=== PATIENT | male | born 1990 | race Caucasian/White ===

== ENCOUNTER 2016-11-07 21:39 | Emergency (ER) | payer OTHER ==
[~2016-11-07] VITALS: Ht 170.2 cm; Wt 72.6 kg
[2016-11-07 21:40] VITALS: BP 131/84
[2016-11-07] MEDS ORDERED: KETOROLAC 30 MG/ML VIAL (J1885) As Ordered ONE (22:28)
[2016-11-07] MEDS ORDERED: METHOCARBAMOL 1,000 MG/10 ML VIAL (J2800) IM ONE (22:30)
[2016-11-07] MEDS: KETOROLAC 60 MG/2 ML VIAL (J1885) IM ONE (22:30)
--- NOTE | 2016-11-07 23:00 | REPUSA ---
CT of the lumbar spine without contrast Clinical history: Pain. Technique: Multiple axial CT images were obtained through the lumbar spine without administration of contrast. Coronal and sagittal 3-D reconstructed images were also obtained. Findings: The lumbar vertebral bodies are in satisfactory positioning and alignment. No fractures or dislocatio ns are demonstrated. Intervertebral disc spaces are well-maintained. There is no evidence of facet freitas bluxation. The neural foramen appear grossly patent. The spinal canal demonstrates normal caliber and contour without evidence of spinal stenosis. The surrounding soft tissues are within normal limits. Impression: Unremarkable CT examination of the lumbar spine.
[2016-11-07] MEDS ORDERED: KETOROLAC 30 MG/ML VIAL (J1885) IV ONE (23:15)
[2016-11-07] MEDS ORDERED: NAPR500T PO (23:34)
[2016-11-07] MEDS ORDERED: SKEL-29 PO (23:34)
== END 2016-11-07 23:45 | disposition home or self-care (01) ==
LOC: M ED 22:09
DX: M54.42 Lumbago with sciatica, left side (principal); Q07.00 Arnold-Chiari syndrome without spina bifida or hydrocephalus; F17.228 Nicotine dependence, chewing tobacco, with other nicotine-induced disorders
CPT/HCPCS: 72131; 96372; 96374; 99281; J1885; J2800

== ENCOUNTER → 2018-06-14 | Outpatient (REF) | payer OTHER | LOC: M SMT 13:23 | DX: Z30.2 Encounter for sterilization (principal) | CPT/HCPCS: 88302 ==

== ENCOUNTER → 2018-11-22 | Outpatient (REF) | payer OTHER, SELFPAY ==
[~2018-11-22] MED LIST: NAPR-837 PO; SKEL800T97 PO
[2018-11-22 13:55] LABS: SEMEN APPEARANCE OPAQUE (OPAQUE); SEMEN VISCOSITY LIQUID (LIQUID); SEMEN VOLUME 1.4 ml (4.0-5.0); SEMEN pH 8.5 (7.0-8.0)
[2018-11-22 13:56] LABS: WBC CONCENTRATION <=1 M/ml (<=1 M/ml)
== END ==
LOC: M SMT 12:51
PROVIDERS: ATTEND Urology
DX: Z31.41 Encounter for fertility testing (principal)